=== PATIENT | male | born 1980 | race African-American/Black ===

== ENCOUNTER 2022-01-18 11:09 | Emergency (ER) | payer MEDICAID, OTHER ==
[~2022-01-18] VITALS: Ht 175.3 cm; Wt 68.0 kg
[2022-01-18 11:15] VITALS: BP 166/105
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
--- NOTE | 2022-01-18 11:58 | NUR ---
DR CHUA AT BEDSIDE.
--- NOTE | 2022-01-18 12:23 | NUR ---
X-RAY AT BEDSIDE.
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
[2022-01-18 13:57] VITALS: BP 145/89
--- NOTE | 2022-01-18 13:58 | NUR ---
Patient discharged with v/s stable. Written and verbal after care instructions given and explained. Patient verbalized understanding. Ambulatory with steady gait. All questions addressed prior to discharge. Advised to follow up with PMD.
--- NOTE | 2022-01-18 14:08 | NUR ---
The patient's care was reviewed and supervised by Marisabel Hernandez RN.
== END 2022-01-18 13:58 | disposition home or self-care (01) ==
LOC: MED 11:09
DX: S00.03XA Contusion of scalp, initial encounter (principal); F17.210 Nicotine dependence, cigarettes, uncomplicated; V03.99XA Pedestrian with other conveyance injured in collision with car, pick-up truck or van, unspecified whether traffic or nontraffic accident, initial encounter; Y93.89 Activity, other specified; Y92.89 Other specified places as the place of occurrence of the external cause; Y99.8 Other external cause status
CPT/HCPCS: 73590; 73610; 73630; 99284; Q0092; 90715

== ENCOUNTER 2022-03-10 16:53 | Emergency (ER) | payer MEDICAID ==
[~2022-03-10] VITALS: Ht 177.8 cm; Wt 81.6 kg
[2022-03-10 17:00] VITALS: BP 149/106
--- NOTE | 2022-03-10 17:04 | NUR ---
Patient wheelchair assisted to bed 1.
[2022-03-10] MEDS ORDERED: NALOXONE 0.4 MG/ML VIAL IVP ONE (17:10)
--- NOTE | 2022-03-10 17:24 | NUR ---
PT RECEIVED, CARE ASSUMED. PT OBTUNDED. PT IS HARD TO AROUSE. NOTED SHOWS SIGNS OF BEING UNDER THE INFLUENCE OF DRUGS OF ETOH. NOTED: GENERAL WEAKNESS, PIN POINT PUPILS. CONNECTED TO TELE MONITOR: SR 89. INSERTED IN AND OUT CATH, COLLECTED URINE. WILL CONTINUE TO MONITOR
--- NOTE | 2022-03-10 19:22 | NUR ---
PT IS ALERT TO PAIN AND VOICE . ABLE TO MOVE UPPER EXTRIMITES, VITAL SIGN WITHIN NORMAL. NO SIGN OF RESPIRATORY DISTRESS NOTED.
[2022-03-10 19:43] LABS: BARBITURATE, URINE NEGATIVE ng/ml (NEG <=200); BENZODIAZEPINE, URINE NEGATIVE ng/mL (NEG <=200); CANNABINOID, URINE POSITIVE ng/mL (NEG <=50); COCAINE, URINE NEGATIVE ng/mL (NEG <=300); OPIATE, URINE NEGATIVE ng/mL (NEG <=2000); PHENCYCLIDINE SCREEN,URINE NEGATIVE ng/mL (NEG <=25)
[2022-03-10] MEDS ORDERED: ACETAMINOPHEN EXTRA STRENGTH 500 MG TAB PO ONE (23:20)
[2022-03-11 02:36] VITALS: BP 142/98
--- NOTE | 2022-03-11 02:37 | NUR ---
Patient discharged with v/s stable. Written and verbal after care instructions given and explained. Patient verbalized understanding. Ambulatory with steady gait. All questions addressed prior to discharge. Advised to follow up with PMD. PT LEFT WITH BELONGINGS
--- NOTE | 2022-03-11 03:40 | NUR ---
PT REFUSED TO SIGN FOR DISCHARGE
== END 2022-03-11 02:30 | disposition home or self-care (01) ==
LOC: MED 16:53
DX: R40.4 Transient alteration of awareness (principal)
CPT/HCPCS: 80305; 96374; 99283; J2310